=== PATIENT | female | born 1970 | race Caucasian/White ===

== ENCOUNTER 2016-06-08 21:18 | Emergency (ER) | payer MEDICAID, OTHER ==
[~2016-06-08] VITALS: Ht 160 cm; Wt 68.0 kg
[~2016-06-08 21:18] MED LIST: BEN25 PO; CETI-240 PO; IBUP-1542 PO; NO MEDS TAKEN; PRED20TA PO
[2016-06-08 21:21] VITALS: Ht 160 cm; Wt 68.0 kg
[2016-06-08] MEDS ORDERED: ALBU8.5H3 INH (21:37)
[2016-06-08] MEDS ORDERED: GUAI473L22 PO (21:37)
[2016-06-08] MEDS ORDERED: CETI10CA PO (21:37)
[2016-06-08] MEDS ORDERED: IBUP-1542 PO (21:37)
--- NOTE | 2016-06-08 21:44 | ERD ---
ER Documentation Chief Complaint Date/Time DATE: 06/08/16 TIME: 21:42 Chief Complaint cough w/ sore throat x 6 days HPI 45-year-old female sent to emergency department for complaints of cough, runny nose, nasal congestion, sore throat, on and off wheezing for 6 days. Patient has been having dry cough, does not cough up any phlegm or blood. Patient has episodes of wheezing at times. Patient does not have any fever or chills. Patient is complaining of sore throat, burning pain, 4/and scale, is worse upon swallowing. Patient denies any ear pain. Patient denies any sick contacts. Patient took ccdt-rvy-xxjbzqz NyQuil and DayQuil to help with symptoms with mild relief. ROS All systems reviewed and are negative except as per history of present illness. Medications Home Meds Active Scripts Albuterol Sulfate* (Proair HFA*) 8.5 Gm Hfa.aer.ad, 2 PUFF INH Q4H Y for WHEEZING AND SOB, #1 INHALER Prov:JOEL JOHNS NP 06/08/16 Ibuprofen* (Motrin*) 600 Mg Tab, 600 MG PO Q6H Y for PAIN AND OR ELEVATED TEMP, #30 TAB Prov:JOEL JOHNS NP 06/08/16 Cetirizine Hcl* (Zyrtec*) 10 Mg Capsule, 10 MG PO DAILY, #30 TAB.CHEW Prov:JOEL JOHNS NP 06/08/16 Guaifenesin-Codeine Phosphate* (Guaifenesin* AC Cough Syrup) 473 Ml Liquid, 10 ML PO Q4H Y for COUGH, #60 ML Prov:JOEL JOHNS NP 06/08/16 Prednisone* (Prednisone*) 20 Mg Tab, 40 MG PO DAILY for 4 Days, TAB Prov:LINO MARQUEZ PA-C 09/13/15 Cetirizine Hcl* (Cetirizine Hcl*) 10 Mg Tablet, 10 MG PO DAILY, #14 TAB Prov:LINO MARQUEZ PA-C 09/13/15 Diphenhydramine Hcl* (Benadryl*) 25 Mg Cap, 25 MG PO BID, #14 CAP Prov:LINO MARQUEZ PA-C 09/13/15 Ibuprofen* (Motrin*) 600 Mg Tab, 600 MG PO Q6H Y for PAIN AND OR ELEVATED TEMP, #20 TAB Prov:ARNALDO DOTSON 04/22/15 Reported Medications [No Meds Taken] No Conflict Check 03/25/11 Allergies Allergies: Coded Allergies: No Known Drug Allergy (Verified Allergy, Mild, 09/13/15) PMhx/Soc Medical and Surgical Hx: pt denies Medical Hx, pt denies Surgical Hx History of Surgery: No Anesthesia Reaction: No Hx Neurological Disorder: No Hx Respiratory Disorders: No Hx Cardiac Disorders: No Hx Psychiatric Problems: No Hx Miscellaneous Medical Probl: No Hx Alcohol Use: No Hx Substance Use: No Hx Tobacco Use: No FmHx Family History: No coronary disease, No diabetes, No other Physical Exam Vitals Vital Signs Date Time Temp Pulse Resp B/P Pulse Ox O2 Delivery O2 Flow Rate FiO2 06/08/16 21:21 97.2 96 20 138/65 100 Physical Exam GENERAL: The patient is well developed and appropriate for usual state of health, in no apparent distress. .HEENT: Atraumatic. Ears: Normal tympanic membrane, no erythema or bulging. No ear canal swelling. No ear discharge. Nose: Erythematous nasal turbinates with clear nasal discharge. Throat: oropharynx erythematous with postnasal drip. No tonsillar swelling or tonsillar exudates. No lymphadenopathy. CHEST: Clear to auscultation bilaterally. There are no rales, wheezes or rhonchi. HEART: Regular rate and rhythm. No murmurs, clicks, rubs or gallops. No S3 or S4. ABDOMEN: Soft, nontender and nondistended. Good bowel sounds. No rebound or guarding. No gross peritonitis. No gross organomegaly or masses. No Mahoney sign or McBurney point tenderness. BACK: No midline or flank tenderness. EXTREMITIES: Equal pulses bilaterally. There is no peripheral clubbing, cyanosis or edema. No focal swelling or erythema. Full range of motion. Grossly neurovascularly intact. NEURO: Alert and oriented. Cranial nerves 2-12 intact. Motor strength in all 4 extremities with 5/5 strength. Sensation grossly intact. Normal speech and gait. SKIN: There is no apparent rash or petechia. The skin is warm and dry. HEMATOLOGIC AND LYMPHATIC: There is no evidence of excessive bruising or lymphedema. No gross cervical, axillary, or inguinal lymphadenopathy. Procedures/MDM Medical Decision Making: Patient symptoms are most likely consistent with active bronchitis, which viral in origin. There is low suspicion for Pneumonia at this time since patients lungs sounds are clear, patient O2 saturation is normal and patient doesnt show any respiratory distress. Radiology exam is not indicated at this time. Patient does not have any wheezing. No symptoms of respiratory distress.. There is low suspicion for other cardiopulmonary emergencies at this time such as CHF, Pulmonary Embolism, Pneumothorax, Aortic Aneurysm or any other cardiopulmonary emergencies at this time. There is low suspicion for sepsis. Patient appears well and is hemodynamically stable. Patient does not have any fever. Disposition: Home. Condition: Stable Prescriptions: Albuterol, guaifenesin with codeine, Zyrtec, ibuprofen Instructions: Patient is advised to take medications as prescribed. Patient is advised to rest. Patient advised to increase fluid intake, do humidifier at home and if possible, do salt water gargles. Patient is advised that if symptoms are worse, shortness of breath, uncontrolled fever, stridor, vomiting, worst signs and symptoms to return to emergency department immediately. Otherwise, patient is advised to follow up with primary doctor in 5-7 days. Departure Diagnosis: Primary Impression: Acute bronchitis Bronchitis organism: unspecified organism Qualified Code: J20.9 - Acute bronchitis, unspecified organism Condition: Stable Patient Instructions: Bronchitis With Wheezing (Adult) [facility]errals[facility] Usted se lowery hecho un examen mdico de control que le indica que no est en hermelindo condicin que requiera tratamiento urgente en el Departamento de Emergencia. Un estudio ms profundo y el tratamiento de aleman condicin pueden esperar sin ningn riesgo hasta que usted sea atendida/o en el consultorio de aleman mdico o hermelindo cl jimbo. Es responsabilidad suya arreglar hermelindo fatuma para el seguimiento del maria guadalupe. MANEJO DE CONDICIONES NO URGENTES EN EL FUTURO 1) Si usted tiene un mdico de atencin primaria: Usted debera llamar a aleman mdico de atencin primaria antes de venir al departamento de emergencia. Despus de las horas de consultorio, aleman doctor o aleman asociado/a est disponible por telfono. El mdico o enfermero de ester en el servicio telefnico puede asesorarle por naz medio para atender el problema, o maria guadalupe contrario se puede programar hermelindo fatuma. 2) Si usted no tiene un mdico de atencin primaria: Llame al mdico o clnica de referencia que aparece abajo rosendo las horas de consultorio para hacer hermelindo fatuma para que le vean. CLINICAS: [facility] [phone] [facility] [phone] [facility] [phone] [address] [facility]. [place] [id number] [phone] [facility]. [facility] [phone] [address] [facility]. [phone] [address] [facility]. [facility] () Usted se lowery hecho un examen mdico de control que le indica que no est en hermelindo condicin que requiera tratamiento urgente en el Departamento de Emergencia. Un estudio ms profundo y el tratamiento de aleman condicin pueden esperar sin ningn riesgo hasta que usted sea atendida/o en el consultorio de aleman mdico o hermelindo cl jimbo. Es responsabilidad suya arreglar hermelindo fatuma para el seguimiento del maria guadalupe. MANEJO DE CONDICIONES NO URGENTES EN EL FUTURO 1) Si usted tiene un mdico de atencin primaria: Usted debera llamar a aleman mdico de atencin primaria antes de venir al departamento de emergencia. Despus de las horas de consultorio, aleman doctor o aleman asociado/a est disponible por telfono. El mdico o enfermero de ester en el servicio telefnico puede asesorarle por naz medio para atender el problema, o maria guadalupe contrario se puede programar hermelindo fatuma. 2) Si usted no tiene un mdico de atencin primaria: Llame al mdico o condado institucions de referencia que aparece abajo rosendo las horas de consultorio para hacer hermelindo fatuma para que le vean. SI USTED NO PUEDE PAGAR PARA AMANDA UN MEDICO puede ir a: [facility] [address] [place] [address] [facility] [address] [place] [address] [facility] [address] [place] [address] [facility] [address] [place] [place], [place] [id number] CUISIA,JOEL An NP Jun 08, 2016 21:44
== END 2016-06-08 21:41 | disposition home or self-care (01) ==
LOC: FTE 21:18 → E/R 21:41
DX: J20.9 Acute bronchitis, unspecified (principal)
CPT/HCPCS: 99283

== ENCOUNTER 2018-06-10 17:00 | Emergency (ER) | payer SELFPAY ==
[~2018-06-10] VITALS: Ht 160 cm; Wt 71.0 kg
[~2018-06-10 17:00] MED LIST changes: +ALBU8.5H8 INH; +AZIT250T PO; -CETI-240 PO; +CETI10CA PO; +CETI10TA19 PO; +D-ME118S24 PO; +GUAI473L22 PO
[2018-06-10 19:23] VITALS: BP 131/76; PULSE 67; RESP 18; Ht 160 cm; Wt 71.0 kg
[2018-06-10] MEDS ORDERED: GUAI118L22 PO (21:23)
[2018-06-10] MEDS ORDERED: BUDE6HFA INHALATION (21:25)
[2018-06-10] MEDS ORDERED: CETI10TA34 PO (21:25)
[2018-06-10] MEDS ORDERED: AMOX1TAB10 PO (21:25)
[2018-06-10] MEDS ORDERED: ALBU90AE INHALATION (21:27)
--- NOTE | 2018-06-11 01:12 | ERD ---
ER Documentation Chief Complaint Chief Complaint cough with congestion with loss of voice x 6 weeks with last 2 being worse HPI 47 year-old [female] coming in today with Chief Complaint: Cough History of Present Illness: Patient reporting cough and chest congestion for 6 weeks. Reports ER visit the past 3 in which she was given azithromycin and a cough medication, states medication initially helped but symptoms returned. Patient reports no relief with at home NyQuil. Patient reports she went to her primary care doctor and they told her allergies and gave her Symbicort. Review of systems: All systems were reviewed and are negative except for what is indicated in the history of present illness. Past Medical History: [Negative for hypertension, diabetes or other medical problems] Social History: [Patient denies tobacco, alcohol, elicit drug use] Medications: Symbicort Allergies: [NKDA] Social Concerns: Denies ROS All systems reviewed and are negative except as per history of present illness. Medications Home Meds Active Scripts Albuterol Sulfate (Proair Respiclick) 90 Mcg Aer.pow.ba, 1 PUFF INHALATION Q4 PRN for cough/shortness of breath, #1 BOTTLE Prov:FELY AGUILAR NP 06/10/18 Budesonide-Formoterol Fumarate* (Symbicort*) 160-4.5 Hfa.aer.ad, 2 PUFF INHALATION BID PRN for daily, #1 EACH Prov:FELY AGUILAR NP 06/10/18 Amoxicillin/Potassium Clav (Amox-Clav 875-125 mg Tablet) 875-125 mg Tab, 1 TAB PO BID for 10 Days, #20 TAB Prov:FELY AGUILAR NP 06/10/18 Cetirizine Hcl* (Cetirizine Hcl*) 10 Mg Tab.chew, 10 MG PO DAILY for allergies, #30 TAB Prov:FELY AGUILAR NP 06/10/18 Guaifenesin/Codeine Phosphate (CHERATUSSIN AC SYRUP) 118 Ml Liquid, 10 ML PO Q8 PRN for cough/congestion, #120 ML Prov:FELY AGUILAR NP 06/10/18 Cetirizine Hcl* (Cetirizine Hcl*) 10 Mg Tablet, 10 MG PO DAILY PRN for COUGH, #30 TAB Prov:LIZETH WHITMAN DO 05/27/18 D-Methorphan Hb/P-Epd HCl/Bpm (Zxbshvtkwt-Tzwgfkuygfw-Xo Syr) 118 Ml Syrup, 5 ML PO Q4H PRN for COUGH for 7 Days, #1 BOTTLE Prov:LIZETH WHITMAN DO 05/27/18 Azithromycin* (Zithromax*) 250 Mg Tablet, 250 MG PO .ZPACK DIRECTED for cough, #6 TAB TAKE 500 MG (2 TABS) THE FIRST DAY THEN 250 MG (1 TAB) DAYS 2-5 Prov:LIZETH WHITMAN DO 05/27/18 Albuterol Sulfate* (Proair HFA*) 8.5 Gm Hfa.aer.ad, 2 PUFF INH Q4H PRN for WHEEZING AND SOB, #1 INHALER Prov:JOEL JOHNS NP 06/08/16 Ibuprofen* (Motrin*) 600 Mg Tab, 600 MG PO Q6H PRN for PAIN AND OR ELEVATED TEMP, #30 TAB Prov:JOEL JOHNS NP 06/08/16 Cetirizine Hcl* (Zyrtec*) 10 Mg Capsule, 10 MG PO DAILY, #30 TAB.CHEW Prov:JOEL JOHNS PAPERHANGER APPRENTICE 06/08/16 Guaifenesin-Codeine Phosphate* (Guaifenesin* AC Cough Syrup) 473 Ml Liquid, 10 ML PO Q4H PRN for COUGH, #60 ML Prov:JOEL JOHNS PAPERHANGER APPRENTICE 06/08/16 Prednisone* (Prednisone*) 20 Mg Tab, 40 MG PO DAILY for 4 Days, TAB Prov:LINO MARQUEZ PA-C 09/13/15 Cetirizine Hcl* (Cetirizine Hcl*) 10 Mg Tablet, 10 MG PO DAILY, #14 TAB Prov:LINO MARQUEZ PA-C 09/13/15 Diphenhydramine Hcl* (Benadryl*) 25 Mg Cap, 25 MG PO BID, #14 CAP Prov:LINO MARQUEZ PA-C 09/13/15 Ibuprofen* (Motrin*) 600 Mg Tab, 600 MG PO Q6H PRN for PAIN AND OR ELEVATED TEMP, #20 TAB Prov:ARNALDO DOTSON 04/22/15 Reported Medications [No Meds Taken] No Conflict Check 12/2/11 Allergies Allergies: Coded Allergies: No Known Drug Allergy (Verified Allergy, Mild, 09/13/15) PMhx/Soc History of Surgery: Yes () Anesthesia Reaction: No Hx Neurological Disorder: No Hx Respiratory Disorders: No Hx Cardiac Disorders: No Hx Psychiatric Problems: No Hx Miscellaneous Medical Probl: No Hx Alcohol Use: No Hx Substance Use: No Hx Tobacco Use: No Smoking Status: Never smoker FmHx Family History: No diabetes, No coronary disease Physical Exam Vitals Vital Signs Date Temp Pulse Resp B/P (MAP) Pulse Ox O2 O2 Flow FiO2 Time Delivery Rate 06/10/18 99.4 67 18 131/76 98 19:23 (94) Physical Exam Const: No acute distress Head: Atraumatic Eyes: Normal Conjunctiva ENT: Normal External Ears, Nose and Mouth. Neck: Full range of motion. No meningismus. Resp: Clear to auscultation bilaterally; coughing present during deep breathi ng Cardio: Regular rate and rhythm, no murmurs Abd: Soft, non tender, non distended. Normal bowel sounds Skin: No petechiae or rashes Back: No midline or flank tenderness Ext: No cyanosis, or edema Neur: Awake and alert Psych: Normal Mood and Affect Procedures/MDM Patient with complaint of chronic cough. ED course includes a thorough examination and history. Low suspicion for cardiac or respiratory emergency Otherwise healthy patient presenting with constellation of symptoms likely representing uncomplicated bronchitis as characterized by history, physical exam findings [, radiologic/lab findings]. X-ray negative for pneumonia or any other acute finding. CXR IMPRESSION: No radiographic evidence of an acute cardiopulmonary process. No respiratory distress, otherwise relatively well appearing and nontoxic. Patient educated on diagnoses, prescriptions (cough suppressant, antibiotics, refill of Symbicort, pro-air for shortness of breath and occurs when patient gets in cold environment) follow-up care, return precautions. Strict return precautions given for worsening condition; questions answered discharge. Translation services used for disposition, agent #[id number] at [id number]. Disposition for discharge with followup in 7 days with PCP/clinic. Educated to seek medical attention in the respiratory distress present. Educated on possibility of needing referral to hose turner if symptoms present, encouraged to talk to PCP in regards to see if referral to hose turner is indicated Departure Diagnosis: Primary Impression: Chronic cough Additional Impression: Bronchitis Condition: Stable Patient Instructions: Allergy Medications: Xyny-vkx-Abcxfmp, Asthma, Bronchitis, Antiobiotic Treatment (Adult) Referrals: [facility] YOU HAVE RECEIVED A MEDICAL SCREENING EXAM AND THE RESULTS INDICATE THAT YOU DO NOT HAVE A CONDITION THAT REQUIRES URGENT TREATMENT IN THE EMERGENCY DEPARTMENT. FURTHER EVALUATION AND TREATMENT OF YOUR CONDITION CAN WAIT UNTIL YOU ARE SEEN IN YOUR DOCTORS OFFICE WITHIN THE NEXT 1-2 DAYS. IT IS YOUR RESPONSIBILITY TO MAKE AN APPOINTMENT FOR FOLOW-UP CARE. IF YOU HAVE A PRIMARY DOCTOR --you should call your primary doctor and schedule and appointment IF YOU DO NOT HAVE A PRIMARY DOCTOR YOU CAN CALL OUR PHYSICIAN REFERRAL HOTLINE AT . IF YOU CAN NOT AFFORD TO SEE A PHYSICIAN YOU CAN CHOSE FROM THE FOLLOWING [facility] INSTITUTIONS: [facility] [address] [place] [address] [facility] [address] [place] [address] [facility] [address] [place] [address] [facility] () Usted se lowery hecho un examen mdico de control que le indica que no est en hermelindo condicin que requiera tratamiento urgente en el Departamento de Emergencia. Un estudio ms profundo y el tratamiento de aleman condicin pueden esperar sin ningn riesgo hasta que usted sea atendida/o en el consultorio de aleman mdico o hermelindo clnica. Es responsabilidad suya arreglar hermelindo fatuma para el seguimiento del maria guadalupe. MANEJO DE CONDICIONES NO URGENTES EN EL FUTURO 1) Si usted tiene un mdico de atencin primaria: Usted debera llamar a aleman mdico de atencin primaria antes de venir al departamento de emergencia. Despus de las horas de consultorio, aleman doctor o aleman asociado/a est disponible por telfono. El mdico o enfermero de ester en el servicio telefnico puede asesorarle por naz medio para atender el problema, o maria guadalupe contrario se puede programar hermelindo fatuma. 2) Si usted no tiene un mdico de atencin primaria: Llame al mdico o clnica de referencia que aparece abajo rosendo las horas de consultorio para hacer hermelindo fatuma para que le vean. CLINICAS: [place] [address] [phone] [facility] [phone] [place] [address] [phone] [place] [address] [phone] [place] [address] [phone] [facility] [phone] [address] Additional Instructions: Call your primary care doctor TOMORROW for an appointment during the next 1 WEEK.Tell the racing secretary and handicapper that you were referred from this facility.See the doctor sooner or return here if your condition worsens before your appointment time. followup to see how medications are working for you and for referral to hose turner FELY AGUILAR NP Jun 11, 2018 01:12
== END 2018-06-10 21:47 | disposition home or self-care (01) ==
LOC: FTE 17:00
DX: J40 Bronchitis, not specified as acute or chronic (principal)
CPT/HCPCS: 71046

== ENCOUNTER 2018-09-10 09:55 | Emergency (ER) | payer MEDICAID ==
[~2018-09-10] VITALS: Ht 149.9 cm; Wt 65.0 kg
[~2018-09-10 09:55] MED LIST changes: +ALBU90AE INHALATION; +AMOX1TAB10 PO; +BUDE6HFA INHALATION; +CETI10TA34 PO; +GUAI118L22 PO
[2018-09-10 09:57] VITALS: BP 138/64; PULSE 89; RESP 18; Ht 149.9 cm; Wt 65.0 kg
[2018-09-10] MEDS ORDERED: ALBU8.5H8 INH (10:35)
[2018-09-10] MEDS ORDERED: AZIT500T3 PO (10:35)
[2018-09-10] MEDS ORDERED: GUAI600T23 PO (10:35)
[2018-09-10] MEDS ORDERED: IBUP-1542 PO (10:35)
[2018-09-10] MEDS ORDERED: IBUPROFEN 600 MG TAB PO ONE (11:00)
[2018-09-10] MEDS ORDERED: AMOX1TAB10 PO (11:04)
--- NOTE | 2018-09-10 11:13 | ERD ---
ER Documentation Chief Complaint Chief Complaint COUGH , CHEST CONGESTION X 1 WEEK HPI This is a 47-year-old woman requesting antibiotic prescription for 6 days of cough, chest congestion, tactile fever, sore throat. She denies chest pain or shortness of breath, no rash, no vomiting or diarrhea, no headache or blurry vision, no dysuria, no recent travel or antibiotic use ROS All systems reviewed and are negative except as per history of present illness. Medications Home Meds Active Scripts Amoxicillin/Potassium Clav (Amox-Clav 875-125 mg Tablet) 875-125 mg Tab, 1 TAB PO BID for 7 Days, #14 TAB Prov:TEAGAN ISIDRO PA-C 09/10/18 Albuterol Sulfate* (Proair HFA*) 8.5 Gm Hfa.aer.ad, 2 PUFF INH Q6H PRN for WHEEZING AND SOB, #1 INHALER Prov:WALTER NG MD 09/10/18 Guaifenesin (Guaifenesin) 600 Mg Tablet.sa, 600 MG PO BID PRN for NASAL CONGESTION, #20 TAB Prov:WALTER NG MD 09/10/18 Ibuprofen* (Motrin*) 600 Mg Tab, 600 MG PO Q8 PRN for PAIN, #30 TAB Prov:WALTER NG MD 09/10/18 Albuterol Sulfate (Proair Respiclick) 90 Mcg Aer.pow.ba, 1 PUFF INHALATION Q4 PRN for cough/shortness of breath, #1 BOTTLE Prov:FELY AGUILAR NP 06/10/18 Budesonide-Formoterol Fumarate* (Symbicort*) 160-4.5 Hfa.aer.ad, 2 PUFF INHALATION BID PRN for daily, #1 EACH Prov:FELY AGUILAR NP 06/10/18 Amoxicillin/Potassium Clav (Amox-Clav 875-125 mg Tablet) 875-125 mg Tab, 1 TAB PO BID for 10 Days, #20 TAB Prov:FELY AGUILAR NP 06/10/18 Cetirizine Hcl* (Cetirizine Hcl*) 10 Mg Tab.chew, 10 MG PO DAILY for allergies, #30 TAB Prov:FELY AGUILAR NP 06/10/18 Guaifenesin/Codeine Phosphate (CHERATUSSIN AC SYRUP) 118 Ml Liquid, 10 ML PO Q8 PRN for cough/congestion, #120 ML Prov:FELY AGUILAR V WHITE SOURER 06/10/18 Cetirizine Hcl* (Cetirizine Hcl*) 10 Mg Tablet, 10 MG PO DAILY PRN for COUGH, #30 TAB Prov:LIZETH WHITMAN DO 05/27/18 D-Methorphan Hb/P-Epd HCl/Bpm (Ltsfljtfqg-Waowlgxmjdm-Lu Syr) 118 Ml Syrup, 5 ML PO Q4H PRN for COUGH for 7 Days, #1 BOTTLE Prov:LIZETH WHITMAN DO 05/27/18 Azithromycin* (Zithromax*) 250 Mg Tablet, 250 MG PO .ZPACK DIRECTED for cough, #6 TAB TAKE 500 MG (2 TABS) THE FIRST DAY THEN 250 MG (1 TAB) DAYS 2-5 Prov:LIZETH WHITMAN DO 05/27/18 Albuterol Sulfate* (Proair HFA*) 8.5 Gm Hfa.aer.ad, 2 PUFF INH Q4H PRN for WHEEZING AND SOB, #1 INHALER Prov:JOEL JOHNS NP 06/08/16 Ibuprofen* (Motrin*) 600 Mg Tab, 600 MG PO Q6H PRN for PAIN AND OR ELEVATED TEMP, #30 TAB Prov:JOEL JOHNS NP 06/08/16 Cetirizine Hcl* (Zyrtec*) 10 Mg Capsule, 10 MG PO DAILY, #30 TAB.CHEW Prov:JOEL JOHNS NP 06/08/16 Guaifenesin-Codeine Phosphate* (Guaifenesin* AC Cough Syrup) 473 Ml Liquid, 10 ML PO Q4H PRN for COUGH, #60 ML Prov:JOEL JOHNS NP 06/08/16 Prednisone* (Prednisone*) 20 Mg Tab, 40 MG PO DAILY for 4 Days, TAB Prov:LINO MARQUEZ PA-C 09/13/15 Cetirizine Hcl* (Cetirizine Hcl*) 10 Mg Tablet, 10 MG PO DAILY, #14 TAB Prov:LINO MARQUEZ PA-C 09/13/15 Diphenhydramine Hcl* (Benadryl*) 25 Mg Cap, 25 MG PO BID, #14 CAP Prov:PROUSE,LINO TerezaJalyn ARGUETA 09/13/15 Ibuprofen* (Motrin*) 600 Mg Tab, 600 MG PO Q6H PRN for PAIN AND OR ELEVATED TEMP, #20 TAB Prov:ARNALDO DOTSONJalyn 04/22/15 Reported Medications [No Meds Taken] No Conflict Check 03/25/11 Allergies Allergies: Coded Allergies: No Known Drug Allergy (Verified Allergy, Mild, 09/13/15) PMhx/Soc Medical and Surgical Hx: pt denies Medical Hx History of Surgery: Yes () Anesthesia Reaction: No Hx Neurological Disorder: No Hx Respiratory Disorders: No Hx Cardiac Disorders: No Hx Psychiatric Problems: No Hx Miscellaneous Medical Probl: No Hx Alcohol Use: No Hx Substance Use: No Hx Tobacco Use: No Smoking Status: Never smoker FmHx Family History: No diabetes Physical Exam Vitals Vital Signs Date Temp Pulse Resp B/P (MAP) Pulse Ox O2 O2 Flow FiO2 Time Delivery Rate 09/10/18 98.6 89 18 138/64 100 09:57 (88) Physical Exam GENERAL: Well-developed, well-nourished, well-hydrated, in no apparent distress, looks nontoxic in appearance HEENT: Moist mucous membranes, pink conjunctiva, no cervical spine tenderness or step-off deformities, no goiter, no jaundice or icterus, extraocular movements intact without pain. No submandibular induration, and no pharyngeal erythema NEURO: Alert and oriented 3, cranial nerves II through XII intact bilaterally, pupils equal round reactive to light, no focal deficits or facial asymmetry, sensation intact distally Strength 5/5 in upper and lower extremities bilaterally CARDIAC: Regular rate and rhythm, no murmurs rubs or gallops LUNGS: Clear bilaterally no wheezing crackles or stridor ABDOMEN: Soft nontender, no guarding, no rigidity, no rebound, no psoas sign no obturator sign. Normoactive bowel sounds SKIN: Warm and dry to touch, no abrasions, contusions, or hematomas, no lacerations, no ecchymosis, no target lesions, and without ulcers EXTREMITIES: No clubbing cyanosis or edema, calves are bilaterally symmetrical, no Homans sign, no popliteal cord sign. Distal pulses equal and bilateral PSYCH: Normal affect without agitation or irritability Results 24 hrs Current Medications Medications Dose Sig/Fatoumata Start Time Status Last (Trade) Ordered Route PRN Stop Time Admin Dose Reason Admin Ibuprofen 600 mg ONCE ONCE 09/10/18 Cancel (Motrin) PO 11:00 09/10/18 11:01 Procedures/MDM I administered ibuprofen 600 mg p.o. x1. Rapid strep was negative. Differential diagnoses considered, included but not limited to acute coronary syndrome, pulmonary embolism, aortic dissection, abdominal aortic aneurysm, sepsis, stroke, meningitis, encephalitis, pneumonia, appendicitis, cholecystitis, bowel obstruction, pyelonephritis, nephrolithiasis, cystitis, as well as metabolic, hematologic, and electrolyte abnormalities. As well as abscess, cellulitis, fractures, and dislocations. Patient feels much better at this time, and vital signs are normal, symptoms have improved. I did give strict instructions to return to the ED if symptoms continue or worsen, patient will otherwise follow-up with primary care physician. Patient understood instructions and agreed to plan. Disclaimer: Inadvertent spelling and grammatical errors are likely due to EHR/dictation software use and do not reflect on the overall quality of patient care. Also, please note that the electronic time recorded on this note does not necessarily reflect the actual time of the patient encounter. Departure Diagnosis: Primary Impression: Acute bronchitis Bronchitis organism: unspecified organism Qualified Codes: J20.9 - Acute bronchitis, unspecified Condition: Good Patient Instructions: Bronchitis, Antiobiotic Treatment (Adult) WALTER NG MD September 10, 2018 11:13
== END 2018-09-10 11:05 | disposition home or self-care (01) ==
LOC: FTE 09:55
DX: J20.9 Acute bronchitis, unspecified (principal)
CPT/HCPCS: 87880; Z7502; 99283